=== PATIENT | male | born 1960 | race Caucasian/White ===

== ENCOUNTER → 2024-08-31 | Outpatient (CLI) | payer OTHER ==
--- NOTE | 2024-08-31 13:59 | CT ---
EXAMINATION TYPE: CT abdomen pelvis w con CT DLP: 727.7 mGycm, Automated exposure control for dose reduction was used. DATE OF EXAM: 08/31/2024 12:43 PM COMPARISON: Non- CLINICAL INDICATION:Male, 63 years old with history of R10.31 RLQ PAIN R10.2 PELVIC AND PERINEAL PAIN ; Lower abdominal pain x 3 months TECHNIQUE: Standard CT of the abdomen and pelvis following the administration of 100 cc of Isovue 3 00 IV contrast material and oral contrast. Coronal and sagittal reformats were performed. FINDINGS: LOWER CHEST: Unremarkable ABDOMEN LIVER: Noncirrhotic morphology. Several simple appearing cysts with dominant right hepatic lobe 10.8 cm cyst. GALLBLADDER AND BILE DUCTS: Unremarkable. PANCREAS: Unremarkable. SPLEEN: Unremarkable. ADRENAL GLANDS: Unremarkable. KIDNEYS AND URETERS: No evidence of hydronephrosis or renal calculus. The kidneys enhance symmetrical ly. Left renal sinus cysts. Additional left kidney cortical 1.0 cm simple appearing cyst. No follow-u p recommended. Contrast is demonstrated within both collecting systems and proximal ureters on the de layed phase. PELVIS BLADDER: Unremarkable REPRODUCTIVE: Unremarkable. ABDOMEN & PELVIS STOMACH AND BOWEL: Stomach and duodenum are unremarkable. Sigmoid diverticulosis without evidence for acute diverticulitis. Enteric contrast reaches the mid small bowel. No focal bowel wall thickening o r surrounding inflammatory changes. There is some small bowel feces sign involving the terminal ileum . No significant bowel dilatation. The appendix is within normal limits. No evidence of bowel obstruc tion. PERITONEUM: No evidence of pneumoperitoneum or free fluid. VASCULATURE: No evidence of aortic aneurysm. MUSCULOSKELETAL: No acute osseous abnormalities. Mild multilevel degenerative disc disease with calci fied disc protrusion at L3-L4 with superior migration of disc material approximately 6 to 7 mm along the posterior cortex of the L3 vertebral body. Results in at least mild central canal stenosis. LYMPH NODES: No evidence for lymphadenopathy. SOFT TISSUE/ABDOMINAL WALL: Small fat filled umbilical hernia. IMPRESSION: 1. No CT evidence for acute abdominal systolic process. The appendix is within normal limits. 2. Small bowel feces sign without evidence for obstruction or small bowel dilatation. Findings sugges t delayed bowel transit. 3. Sigmoid diverticulosis without evidence for acute diverticulitis. 4. Several simple appearing hepatic cysts with dominant right hepatic lobe cyst measuring up to 10.8 cm. [facility], , 08/31/2024 1:57 PM
== END | disposition home or self-care (01) ==
LOC: RADCTMAIN 10:53
PROVIDERS: ATTEND Family Medicine
DX: K57.30 Diverticulosis of large intestine without perforation or abscess without bleeding (principal); K76.89 Other specified diseases of liver
CPT/HCPCS: 74177; Q9967